=== PATIENT | female | born 1935 | race Hispanic/Latino ===

== ENCOUNTER 2018-04-19 11:45 | Observation (INO) | payer OTHER ==
[~2018-04-19] VITALS: Ht 154.9 cm; Wt 88.0 kg
[~2018-04-19 11:45] MED LIST: LISINOPRIL; METFORMIN; ONDANSETRON IV; PEPCID IV; TYLENOL500 MG PO; Z.0.LISINOPRIL10 MG PO; Z.0.TRAZODONE HCL100 PO; Z.0.TRAZODONE HCL50; Z.2.METFORMIN HCL500 PO
--- OUTSIDE RECORDS SUMMARY | 2018-04-19 11:49 | XMS REPORT | Clinical Summary ---
Author Author [facility] Organization [facility] Address Unknown Phone Unavailable Care Team Providers Care Relay Engineer Name Role Phone Asked, Pcp PCP Unavailable Allergies Active Allergy Reactions Severity Noted Date Comments Codeine GI Intolerance 12/29/2017 vomiting Current Medications Prescription Sig. Disp. Refills Start End Date Status Date lovastatin (MEVACOR) 20 Take 20 mg by mouth Active MG tablet nightly. metFORMIN (GLUCOPHAGE) Take 500 mg by mouth Active 500 mg tablet daily with breakfast. acetaminophen (TYLENOL) Take 500 mg by mouth Active 500 MG tablet every 6 (six) hours. lisinopril Take 1 tablet (20 mg 30 tablet 0 01/01/20 Active (PRINIVIL,ZESTRIL) 20 mg total) by mouth daily for 18 tablet 30 days. lisinopril Take 10 mg by mouth 12/31/19 Discontin (PRINIVIL,ZESTRIL) 10 mg daily. 18 ued tablet amLODIPine (NORVASC) 5 mg Take 1 tablet (5 mg 30 tablet 0 01/01/20 02/01/20 tablet total) by mouth daily for 18 18 30 days. Active Problems Problem Noted Date Essential hypertension 12/31/2017 General weakness 12/29/2017 Lower GI bleed 12/29/2017 Overview: Added automatically from request for surgery [id number] Encounters Date Type Specialty Care Team Description 12/31/2017 Patient Quality Mitzy Salmeron RN Outreach 12/30/2017 Anesthesia Gastroenterology Jv Graham MD 12/30/2017 Procedure Pass Gastroenterology 12/30/2017 Surgery Gastroenterology Arias Rodriguez MD COLONOSCOPY 12/29/2017 [facility] General Internal Medicine Charlee Frye MD General weakness (Primary - Encounter Lynda Rao, Jose C); 12/31/2017 Severe anemia; Lower GI bleed; Dehydration; Essential hypertension; Metabolic acidosis; Hypoalbuminemia after 04/18/2017 Family History Medical History Relation Name Comments Diabetes Father Diabetes Mother Relation Name Status Comments Father Mother Social History Tobacco Use Types Packs/Day Years Used Date Never Smoker Smokeless Tobacco: Never Used Alcohol Use Drinks/Week oz/Week Comments No Sex Assigned at Date Recorded Not on file Last Filed Vital Signs Vital Sign Reading Time Taken Blood Pressure 154/67 12/31/2017 11:41 AM [facility] Pulse 80 12/31/2017 11:41 AM [employer] CLE[employer]ER Temperature 36.3 C (97.3 F) 12/31/2017 11:41 AM TOP CLE[employer]ER Respiratory Rate 18 12/31/2017 11:41 AM TOP CLE[employer]ER Oxygen Saturation 98% 12/31/2017 11:41 AM [employer] CLE[employer]ER Inhaled Oxygen - - Concentration Weight - - Height 154.9 cm (5' 1") 12/29/2017 10:01 AM [employer] CLE[employer]ER Body Mass Index - - Plan of Treatment Health Maintenance Due Date Last Done Comments SHINGRIX VACCINE (#1) 1985 ZOSTER VACCINE 1995 PNEUMOCOCCAL 02/04/2000 POLYSACCHARIDE VACCINE AGE 65 AND OVER PNEUMOCOCCAL-13 02/04/2000 INFLUENZA VACCINE 06/22/2018 Procedures Procedure Name Priority Date/Time Associated Diagnosis Comments COLONOSCOPY 12/30/2017 Lower GI bleed 7:00 AM TOP CLEANER after 04/18/2017 Results * POC glucose (12/31/2017 11:42 AM) Only the most recent of 13 results within the time period is included. Component Value Ref Range POC glucose 116 (H) 65 - 99 mg/dL Comment: [facility] Notified RN Meter ID: [id number] Tele Rn: Sang Bray Specimen Performing Laboratory [facility] DEPARTMENT OF PATHOLOGY AND GENOMIC MEDICINE [address] [place] [id number] * CBC with platelet and differential (12/31/2017 5:50 AM) Only the most recent of 5 results within the time period is included. Component Value Ref Range WBC 10.26 4.50 - 11.00 k/uL RBC 3.96 (L) 4.20 - 5.50 m/uL HGB 11.5 (L) 12.0 - 16.0 g/dL HCT 35.6 (L) 37.0 - 47.0 % MCV 89.9 82.0 - 100.0 fL MCH 29.0 27.0 - 34.0 pg MCHC 32.3 31.0 - 37.0 g/dL RDW - SD 47.3 37.0 - 55.0 fL MPV 9.6 8.8 - 13.2 fL Platelet count 347 150 - 400 k/uL Nucleated RBC 0.00 /100 WBC Neutrophils 69.0 39.0 - 69.0 % Lymphocytes 18.4 (L) 25.0 - 45.0 % Monocytes 7.6 0.0 - 10.0 % Eosinophils 3.8 0.0 - 5.0 % Basophils 0.4 0.0 - 1.0 % Immature granulocytes 0.8Comment: "Immature granulocytes" 0.0 - 1.0 % (promyelocytes, myelocytes, metamyelocytes) Specimen Performing Laboratory Blood [facility] DEPARTMENT OF PATHOLOGY AND GENOMIC MEDICINE [address] [place] [id number] * Estimated GFR (12/30/2017 5:00 AM) Only the most recent of 2 results within the time period is included. Component Value Ref Range GFR Non Af Amer 80 mL/min/1.73 m2 GFR Af Amer >90 mL/min/1.73 m2 Comment: Chronic kidney disease: <60 mL/min/1.73m2 Kidney failure: <15 mL/min/1.73m2 The estimated GFR is calculated from the IDMS-traceable Modification of Diet in Renal Disease Equation. The accuracy of the calculation is poor when the creatinine is normal. Calculated values >90 mL/min/1.73m2 are not reported. This equation has not been validated in children (<18 years), women, the elderly (>70 years), or ethnic groups other than Caucasians and Americans. Specimen Performing Laboratory Plasma specimen [facility] DEPARTMENT OF PATHOLOGY AND GENOMIC MEDICINE [address] [place] [id number] * Troponin (12/30/2017 5:00 AM) Only the most recent of 3 results within the time period is included. Component Value Ref Range Troponin <0.30 0.00 - 0.30 ng/mL Comment: 0.30 - 1.49 ng/ml May indicate increased risk of acute coronary syndrome. >=1.5 ng/ml Consistent with acute myocardial infarction. The diagnostic value of a single normal or non-diagnostic result is questionable. Serial samples at 2-6 hour intervals are required to rule out acute myocardial injury. Specimen Performing Laboratory Plasma specimen [facility] DEPARTMENT OF PATHOLOGY AND GENOMIC MEDICINE [address] [place] [id number] * Prothrombin time with INR (12/30/2017 5:00 AM) Only the most recent of 2 results within the time period is included. Component Value Ref Range Prothrombin time 13.7 12.0 - 15.0 sec INR 1.0 Comment: The International Normalized Ratio (INR) is a therapeutic monitoring tool for patients who are stable on oral anticoagulant therapy. An INR of 2.0-3.0 is suggested for deep vein thrombosis/pulmonary embolism. Specimen Performing Laboratory Blood [facility] DEPARTMENT OF PATHOLOGY AND [facility] MEDICINE [address] [place] [id number] * Comprehensive metabolic panel (12/30/2017 5:00 AM) Only the most recent of 2 results within the time period is included. Component Value Ref Range Sodium 138 135 - 148 mEq/L Potassium 3.9 3.5 - 5.0 mEq/L Chloride 105 98 - 112 mEq/L CO2 17 (L) 24 - 31 mEq/L Anion gap 16 (H) 7 - 15 mEq/L Comment: Starting from February , anion gap calculation no longer incorporates potassium. Please note the change. BUN 17 8 - 23 mg/dL Creatinine 0.7 0.5 - 0.9 mg/dL Glucose 98 65 - 99 mg/dL Calcium 9.1 8.8 - 10.2 mg/dL Protein 7.0 6.3 - 8.3 g/dL Comment: [place] 4.6-7.0 g/dL 1 week 4.4-7.6 g/dL 7 months-1year 5.1-7.3 g/dL 1-2 years 5.6-7.5 g/dL >3 years 6.0-8.0 g/dL 18-150 6.3-8.3 g/dL Albumin 3.3 (L) 3.5 - 5.0 g/dL A/G ratio 0.9 0.7 - 3.8 Alkaline phosphatase 56 35 - 104 U/L AST 21 10 - 35 U/L ALT <5 (A) 5 - 50 U/L Total bilirubin 0.6 0.0 - 1.2 mg/dL Specimen Performing Laboratory Plasma specimen [facility] DEPARTMENT OF PATHOLOGY AND [facility] MEDICINE [address] [place] [id number] * Transfuse RBC (12/29/2017 5:31 PM) * ECG 12 lead (12/29/2017 5:26 PM) Component Value Ref Range Ventricular rate 69 Atrial rate 69 NC interval 148 QRSD interval 142 QT interval 482 QTC interval 516 P axis 1 53 QRS axis 1 34 T wave axis -8 EKG impression Normal sinus rhythm-Right bundle branch block-Minimal voltage criteria for LVH, may be normal variant-T wave abnormality, consider inferior ischemia-Abnormal ECG-No previous ECGs available- Specimen Performing Laboratory [facility] MUSE [address] [place] [address] * Urine culture (12/29/2017 1:55 PM) Component Value Ref Range Urine culture SEE COMMENTComment: Bacteriuria screen negative. Specimen Performing Laboratory [facility] DEPARTMENT OF PATHOLOGY AND GENOMIC MEDICINE [address] [place] [address] * Smear review (12/29/2017 1:06 PM) Only the most recent of 2 results within the time period is included. Component Value Ref Range Platelet slide review Monica adequate Anisocytosis Moderate Ovalocytes Moderate Enlarged platelets Moderate (A) Specimen Performing Laboratory [facility] DEPARTMENT OF PATHOLOGY AND GENOMIC MEDICINE [address] [place] [address] * Prepare RBC, 3 Units (12/29/2017 1:06 PM) Component Value Ref Range Product name Red Blood Cells -1, Leukored Unit number [id number] Product code [id number] Dispense status Transfused Blood expiration date 20180203 Blood type code 5100 Blood type O POSITIVE Product name Red Blood Cells -1, Leukored Unit number [id number] Product code [id number] Dispense status Transfused Blood expiration date 20180106 Blood type code 5100 Blood type O POSITIVE Product name Red Blood Cells -1, Leukored Unit number [id number] Product code [id number] Dispense status Transfused Blood expiration date 20180127 Blood type code 5100 Blood type O POSITIVE Specimen Performing Laboratory [facility] DEPARTMENT OF PATHOLOGY AND GENOMIC MEDICINE [address] [place] [address] * Type and screen (12/29/2017 1:06 PM) Component Value Ref Range ABO grouping O Rh type POS Antibody screen (gel) NEG Specimen Performing Laboratory Blood [facility] DEPARTMENT OF PATHOLOGY AND GENOMIC MEDICINE [address] [place] [address] * Urinalysis screen and microscopy, with reflex to culture (12/29/2017 12:38 PM) Component Value Ref Range Specimen site Clean catch Color, UA Straw Appearance, UA Clear Specific gravity, UA 1.018 1.001 - 1.035 pH, UA 5.0 5.0 - 8.5 Protein, UA 1+ (A) Negative Glucose, UA Negative Negative Ketones, UA Negative Negative Bilirubin, UA Negative Negative Blood, UA Small (A) Negative Nitrite, UA Negative Negative Urobilinogen, UA <2.0 <2.0 Leukocyte esterase, UA Negative Negative Epithelial cells, UA 1 /HPF WBC, UA 1 0 - 4 /HPF RBC, UA <1 0 - 2 /HPF Bacteria, UA Few None seen Yeast, UA None seen Yeast with pseudohyphae, None seen UA Hyaline casts, UA 1 /LPF Specimen Performing Laboratory Urine [facility] DEPARTMENT OF PATHOLOGY AND GENOMIC MEDICINE [address] [place] [address] * XR Chest 1 Vw Portable (12/29/2017 12:26 PM) Specimen Performing Laboratory [facility] [address] [place] [address] Narrative EXAMINATION:XR CHEST 1 VW PORTABLE CLINICAL HISTORY:gen weakness COMPARISON:None. IMPRESSION: 1.The heart size is slightly enlarged.The aorta is atherosclerotic. 2.There is no evidence pulmonary edema. Minimal patchy volume loss is present the left lung base. There are no pleural effusions. 3.Regional skeletal structures are within normal limits. [facility]-[id number] Procedure Note Interface, Radiology Results Incoming - 12/29/2017 12:30 PM TOP CLEANER EXAMINATION: XR CHEST 1 VW PORTABLE CLINICAL HISTORY: gen weakness COMPARISON: None. IMPRESSION: 1. The heart size is slightly enlarged. The aorta is atherosclerotic. 2. There is no evidence pulmonary edema. Minimal patchy volume loss is present the left lung base. There are no pleural effusions. 3. Regional skeletal structures are within normal limits. [facility]-[id number] * B natriuretic peptide (12/29/2017 12:15 PM) Component Value Ref Range BNP 30 0 - 100 pg/mL Specimen Performing Laboratory Blood [facility] DEPARTMENT OF PATHOLOGY AND GENOMIC MEDICINE [address] [place] [address] * Lactic acid level (12/29/2017 12:15 PM) Component Value Ref Range Lactic acid 1.6 0.5 - 2.2 mmol/L Specimen Performing Laboratory Plasma specimen [facility] DEPARTMENT OF PATHOLOGY AND GENOMIC MEDICINE [address] [place] [address] Narrative PER NURSE Shaw NOLASCO ADD ON12/29/201713:34 * CT Head Wo Contrast (12/29/2017 12:10 PM) Specimen Performing Laboratory [facility] [address] [place] [address] Narrative EXAMINATION:CT HEAD WO CONTRAST CLINICAL HISTORY:gen weakness COMPARISON:None. TECHNIQUE: Noncontrast head CT performed using radiation dose reduction techniques.Technical factors are evaluated and adjusted to ensure appropriate moderation of exposure.Automated dose management technology is applied to adjust radiation exposure while achieving a diagnostic quality image. FINDINGS: No evidence of acute intracranial hemorrhage, mass, mass effect, midline shift, or acute infarct. Few areas of subcortical and periventricular white matter hypoattenuation likely reflecting mild chronic microvascular ischemic changes. Ventricles and sulci are normal in appearance for patient's age.Arteriosclerosis of the cavernous and paraclinoid internal carotid arteries. Basal cisterns are clear. Calvarium is intact. 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 Status post bilateral lens extractions. Mild sinus inflammatory changes with small frothy secretions in the right sphenoid sinus. Mastoid air cells appear clear. IMPRESSION: 1. No CT evidence of acute intracranial abnormality. 2. Age-related involutional changes. [id number] Procedure Note Interface, Radiology Results Incoming - 12/29/2017 12:15 PM TOP CLEANER EXAMINATION: CT HEAD WO CONTRAST CLINICAL HISTORY: gen weakness COMPARISON: None. TECHNIQUE: Noncontrast head CT performed using radiation dose reduction techniques. Technical factors are evaluated and adjusted to ensure appropriate moderation of exposure. Automated dose management technology is applied to adjust radiation exposure while achieving a diagnostic quality image. FINDINGS: No evidence of acute intracranial hemorrhage, mass, mass effect, midline shift, or acute infarct. Few areas of subcortical and periventricular white matter hypoattenuation likely reflecting mild chronic microvascular ischemic changes. Ventricles and sulci are normal in appearance for patient's age. Arteriosclerosis of the cavernous and paraclinoid internal carotid arteries. Basal cisterns are clear. Calvarium is intact. 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 Status post bilateral lens extractions. Mild sinus inflammatory changes with small frothy secretions in the right sphenoid sinus. Mastoid air cells appear clear. IMPRESSION: 1. No CT evidence of acute intracranial abnormality. 2. Age-related involutional changes. [id number] * ECG ED Preliminary Interpretation - NOT AN ORDER (12/29/2017 11:02 AM) Narrative Charlee Frye MD 01/23/20182:03 PM ECG ED Preliminary Interpretation - Not an Order Performed by: CHARLEE FRYE Authorized by: CHARLEE FRYE ECG reviewed by ED Physician in the absence of a dial painter: yes Interpretation: Interpretation: abnormal Rate: ECG rate:69 ECG rate assessment: normal Rhythm: Rhythm: sinus rhythm QRS: QRS axis:Normal QRS intervals:Normal ST segments: ST segments:Normal Comments: Long qt after 04/18/2017 Insurance Payer Benefit Subscriber ID Type Phone Address Plan / Group [employer] xxxxxxxxx [facility]
[2018-04-19] MEDS ORDERED: CLONIDINE HCL 0.1 MG TAB PO ONE (12:15)
[2018-04-19] MEDS ORDERED: ASPIRIN 81 MG CHEW TAB PO ONE (12:15)
[2018-04-19 12:27] LABS: BASOPHILS % 0.5 % (0.0-1.0); EOSINOPHILS # (AUTO) 0.3 (0.0-0.4); EOSINOPHILS % 3.8 % (0.0-6.0); HEMOGLOBIN 11.5 g/dL (12.0-16.0); LYMPHOCYTES # (AUTO) 1.9 (1.0-3.2); LYMPHOCYTES % 26.3 % (18.0-39.1); MEAN CORPUSCULAR HEMOGLOBIN 29.5 pg (28-32); MEAN CORPUSCULAR HGB CONC 32.9 g/dL (31-35); MEAN CORPUSCULAR VOLUME 89.7 fL (81-99); MONOCYTES # (AUTO) 0.6 (0.2-0.8); NEUTROPHILS # (AUTO) 4.5 (2.1-6.9); NEUTROPHILS % 61.3 % (38.7-80.0); PLATELET COUNT 320 x10e3/uL (140-360); RED CELL DISTRIBUTION WIDTH 15.7 % (11.7-14.4)
[2018-04-19 12:28] LABS: INR 1.01; PROTHROMBIN TIME 12.5 seconds (11.9-14.5)
[2018-04-19 12:29] LABS: PARTIAL THROMBOPLASTIN TIME 32.4 seconds (23.8-35.5)
[2018-04-19 12:37] LABS: ALANINE AMINOTRANSFERASE 62 IU/L (0-55); ALBUMIN 4.5 g/dL (3.5-5.0); ALBUMIN/GLOBULIN RATIO 1.1 (0.8-2.0); ALKALINE PHOSPHATASE 107 IU/L (40-150); ANION GAP 14.1 mmol/L (8-16); BLOOD UREA NITROGEN 25 mg/dL (7-26); BUN/CREATININE RATIO 29 (6-25); CALCIUM 10.4 mg/dL (8.4-10.2); CARBON DIOXIDE 24 mmol/L (22-29); CHLORIDE 106 mmol/L (98-107); CREATINE KINASE 109 IU/L (29-168); CREATININE, SERUM 0.86 mg/dL (0.57-1.11); EST GLOMERULAR FILTRATION RATE > 60 ML/MIN (60-); GLUCOSE 96 mg/dL (74-118); POTASSIUM 4.1 mmol/L (3.5-5.1); SODIUM 140 mmol/L (136-145)
--- NOTE | 2018-04-19 12:46 | Diagnostic Imaging Report ---
PROCEDURE:CHEST SINGLE (PORTABLE) TECHNIQUE:Portable AP chest INDICATION:High blood pressure COMPARISON:Patients [facility], DX, CHEST SINGLE (PORTABLE), 06/21/2012, 14:40. FINDINGS: The lungs are clear and symmetrically inflated. No pleural effusions. Mild cardiomegaly with normal central vasculature. Mild aortic arch calcification. Intact skeleton. Study limited by underpenetration secondary to portable technique and body habitus. CONCLUSION: Mild cardiomegaly without acute abnormality. Dictated by: Osman Almonte M.D. on 04/19/2018 at 12:49 Electronically approved by: Osman Almonte M.D. on 04/19/2018 at 12:49
--- OUTSIDE RECORDS SUMMARY | 2018-04-19 15:23 | XMS REPORT ---
[facility] Address Unknown Phone Unavailable Care Team Providers Care Casino Floorperson Name Role Phone CELESTINO WRIGHT Unavailable Unavailable Problems This patient has no known problems. Allergies, Adverse Reactions, Alerts This patient has no known allergies or adverse reactions. Medications This patient has no known medications. Results Test Description Test Time Test Comments Text Results Atomic Results Result Comments CHEST SINGLE (PORTABLE) [place] [address] Patient Name: CLEMENTINA GALLOWAY MR #: [id number] : 1935 Age/Sex: 83/F Req #: [id number] Adm Physician: Ordered by: MCKAYLA BUSH PAYMENT COLLECTOR Report #: [id number] Location: ER Room/Bed: Procedure: [id number] DX/CHEST SINGLE (PORTABLE) Exam Date: 04/19/18 Exam Time: 1210 REPORT STATUS: Signed PROCEDURE: CHEST SINGLE (PORTABLE) TECHNIQUE: Portable AP chest INDICATION: High blood pressure COMPARISON: [facility], DX, CHEST SINGLE ( PORTABLE), 06/21/2012, 14:40. FINDINGS: The lungs are clear and symmetrically inflated. No pleural effusions. Mild cardiomegaly with normal central vasculature. Mild aortic arch calcification. Intact skeleton. Study limited by underpenetration secondary to portable technique and body habitus. CONCLUSION: Mild cardiomegaly without acute abnormality. Dictated by: Edie Almonte M.D. on 04/19/2018 at 12:49 Electronically approved by: Edie Almonte M.D. on 04/19/2018 at 12: 49 Dictated By: EDIE ALMONTE MD 1249 Transcribed By: HAYLIE on 04/19/18 1249 COPY TO: MCKAYLA BUSH NP
--- OUTSIDE RECORDS SUMMARY | 2018-04-19 15:23 | XMS REPORT | Clinical Summary ---
Author Author [facility] [employer] Address Unknown Phone Unavailable Care Team Providers Care Licensed Nuclear Control Room Operator Name Role Phone Asked, Pcp PCP Unavailable [...] Overview: Added automatically from request for surgery [id number] Encounters Date Type Specialty Care Team Description 12/31/2017 Patient Quality Mitzy Salmeron RN Outreach 12/30/2017 Anesthesia Gastroenterology Jv Graham MD 12/30/2017 Procedure Pass Gastroenterology 12/30/2017 Surgery Gastroenterology Arias Rodriguez MD COLONOSCOPY 12/29/2017 [facility] General Internal Medicine Charlee Frye MD General [...] Taken Blood Pressure 154/67 12/31/2017 11:41 AM BULK FILLER Pulse 80 12/31/2017 11:41 AM BULK FILLER Temperature 36.3 C (97.3 F) 12/31/2017 11:41 AM BULK FILLER Respiratory Rate 18 12/31/2017 11:41 AM BULK FILLER Oxygen Saturation 98% 12/31/2017 11:41 AM BULK FILLER Inhaled Oxygen - - Concentration Weight - - Height 154.9 cm (5' 1") 12/29/2017 10:01 AM BULK FILLER Body Mass Index - - Plan of Treatment Health Maintenance Due Date Last Done Comments SHINGRIX VACCINE (#1) 1985 ZOSTER VACCINE 1995 PNEUMOCOCCAL 02/04/2000 POLYSACCHARIDE VACCINE AGE 65 AND OVER PNEUMOCOCCAL-13 02/04/2000 INFLUENZA VACCINE 06/22/2018 Procedures Procedure Name Priority Date/Time Associated Diagnosis Comments COLONOSCOPY 12/30/2017 Lower GI bleed 7:00 AM BULK FILLER after 04/18/2017 Results * POC glucose (12/31/2017 11:42 AM) Only the most recent of 13 results within the time period is included. Component Value Ref Range POC glucose 116 (H) 65 - 99 mg/dL Comment: [facility] Notified RN Meter ID: [id number] Gunstock Repairer: Sang Bray Specimen Performing Laboratory [facility] DEPARTMENT OF PATHOLOGY AND GENOMIC MEDICINE [address] [place] [id number] * CBC with platelet and differential (12/31/2017 [...] (promyelocytes, myelocytes, metamyelocytes) Specimen Performing Laboratory Blood [facility] DEPARTMENT OF PATHOLOGY AND GENOMIC MEDICINE [address] [place] [phone] * Estimated GFR (12/30/2017 5:00 AM) Only [...] and Americans. Specimen Performing Laboratory Plasma specimen [facility] DEPARTMENT OF PATHOLOGY AND GENOMIC MEDICINE [address] [place] [address] 11279 * Troponin (12/30/2017 5:00 AM) Only the [...] myocardial injury. Specimen Performing Laboratory Plasma specimen [facility] DEPARTMENT OF PATHOLOGY AND GENOMIC MEDICINE [address] [place] [id number] * Prothrombin time with INR (12/30/2017 5:00 [...] vein thrombosis/pulmonary embolism. Specimen Performing Laboratory Blood [facility] DEPARTMENT OF PATHOLOGY AND [facility] [address] [place] [phone] * Comprehensive metabolic panel (12/30/2017 5:00 AM) [...] Protein 7.0 6.3 - 8.3 g/dL Comment: [place] 4.6-7.0 g/dL 1 week 4.4-7.6 g/dL 7 [...] 1.2 mg/dL Specimen Performing Laboratory Plasma specimen [facility] DEPARTMENT OF PATHOLOGY AND [facility] [address] [place] [address] * Transfuse RBC (12/29/2017 5:31 PM) * ECG 12 lead (12/29/2017 5:26 PM) Component Value Ref Range Ventricular rate 69 Atrial rate 69 SC interval 148 QRSD interval 142 QT interval 482 QTC interval 516 P axis 1 53 QRS axis 1 34 T wave axis -8 EKG impression Normal sinus rhythm-Right bundle branch block-Minimal voltage criteria for LVH, may be normal variant-T wave abnormality, consider inferior ischemia-Abnormal ECG-No previous ECGs available- Specimen Performing Laboratory [facility] [address] [address] [place] [address] * Urine culture (12/29/2017 1:55 PM) Component Value Ref Range Urine culture SEE COMMENTComment: Bacteriuria screen negative. Specimen Performing Laboratory [facility] DEPARTMENT OF PATHOLOGY AND GENOMIC MEDICINE [address] [place] [address] * Smear review (12/29/2017 1:06 PM) Only the most recent of 2 results within the time period is included. Component Value Ref Range Platelet slide review Monica adequate Anisocytosis Moderate Ovalocytes Moderate Enlarged platelets Moderate (A) Specimen Performing Laboratory [facility] DEPARTMENT OF PATHOLOGY AND GENOMIC MEDICINE [address] [place] [address] * Prepare RBC, 3 Units (12/29/2017 1:06 PM) Component Value Ref Range Product name Red Blood Cells -1, Leukored Unit number [id number] Product code [id number] Dispense status Transfused Blood expiration date 20180203 Blood type code 5100 Blood type O POSITIVE Product name Red Blood Cells -1, Leukored Unit number [id number] Product code [id number] Dispense status Transfused Blood expiration date 20180106 Blood type code 5100 Blood type O POSITIVE Product name Red Blood Cells -1, Leukored Unit number [id number] Product code [id number] Dispense status Transfused Blood expiration date 20180127 Blood type code 5100 Blood type O POSITIVE Specimen Performing Laboratory [facility] DEPARTMENT OF PATHOLOGY AND GENOMIC MEDICINE [address] [place] [address] * Type and screen (12/29/2017 1:06 PM) Component Value Ref Range ABO grouping O Rh type POS Antibody screen (gel) NEG Specimen Performing Laboratory Blood [facility] DEPARTMENT OF PATHOLOGY AND GENOMIC MEDICINE [address] [place] [address] * Urinalysis screen and microscopy, with reflex [...] UA 1 /LPF Specimen Performing Laboratory Urine [facility] DEPARTMENT OF PATHOLOGY AND GENOMIC MEDICINE [address] [place] [phone] * XR Chest 1 Vw Portable (12/29/2017 12:26 PM) Specimen Performing Laboratory [facility] [address] [place] [address] Narrative EXAMINATION:XR CHEST 1 VW PORTABLE CLINICAL HISTORY:gen weakness COMPARISON:None. IMPRESSION: 1.The heart size is slightly enlarged.The aorta is atherosclerotic. 2.There is no evidence pulmonary edema. Minimal patchy volume loss is present the left lung base. There are no pleural effusions. 3.Regional skeletal structures are within normal limits. [facility]-[id number] Procedure Note Interface, Radiology Results Incoming - 12/29/2017 12:30 PM BULK FILLER EXAMINATION: XR CHEST 1 VW PORTABLE CLINICAL HISTORY: gen weakness COMPARISON: None. IMPRESSION: 1. The heart size is slightly enlarged. The aorta is atherosclerotic. 2. There is no evidence pulmonary edema. Minimal patchy volume loss is present the left lung base. There are no pleural effusions. 3. Regional skeletal structures are within normal limits. [facility]-[id number] * B natriuretic peptide (12/29/2017 12:15 PM) Component Value Ref Range BNP 30 0 - 100 pg/mL Specimen Performing Laboratory Blood [facility] DEPARTMENT OF PATHOLOGY AND GENOMIC MEDICINE [address] [place] [phone] * Lactic acid level (12/29/2017 12:15 PM) Component Value Ref Range Lactic acid 1.6 0.5 - 2.2 mmol/L Specimen Performing Laboratory Plasma specimen [facility] DEPARTMENT OF PATHOLOGY AND GENOMIC MEDICINE [address] [place] [address]783 Narrative PER NURSE Shaw NOLASCO ADD ON12/29/201713:34 * CT Head Wo Contrast (12/29/2017 12:10 PM) Specimen Performing Laboratory [facility] [address] [place] [address] Narrative EXAMINATION:CT HEAD WO CONTRAST CLINICAL HISTORY:gen [...] acute intracranial abnormality. 2. Age-related involutional changes. [id number] Procedure Note Interface, Radiology Results Incoming - 12/29/2017 12:15 PM BULK FILLER EXAMINATION: CT HEAD WO CONTRAST CLINICAL HISTORY: [...] acute intracranial abnormality. 2. Age-related involutional changes. [id number] * ECG ED Preliminary Interpretation - NOT AN ORDER (12/29/2017 11:02 AM) Narrative Charlee Frye MD 01/23/20182:03 PM ECG ED Preliminary Interpretation - Not an Order Performed by: CHARLEE FRYE Authorized by: CHARLEE FRYE ECG reviewed by ED Physician in the absence of a synthetic filament spinner: yes Interpretation: Interpretation: abnormal Rate: ECG rate:69 ECG rate assessment: normal Rhythm: Rhythm: sinus rhythm QRS: QRS axis:Normal QRS intervals:Normal ST segments: ST segments:Normal Comments: Long qt after 04/18/2017 Insurance Payer Benefit Subscriber ID Type Phone Address Plan / Group [employer] xxxxxxxxx [facility]
--- NOTE | 2018-04-19 15:49 | Diagnostic Imaging Report ---
Exam: Head CT without contrast History: Dizziness, hypertension Comparison studies: None Technique: Axial images were obtained from the skull base to the vertex. Coronal and sagittal images reconstructed from the axial data. Intravenous contrast: None Findings: Scalp: No abnormalities. Bones: No fractures, blastic or lytic lesions. Brain sulci: Mildly prominent but age appropriate. Ventricles: Normal in size and configuration. No hydrocephalus. Extra-axial spaces: No masses, no fluid collection. Parenchyma: No abnormal densities. No mass, acute hemorrhage or acute or chronic cortical vascular insults. Sellar/suprasellar region: No abnormalities. Craniocervical junction: Patent foramen magnum. No Chiari one malformation. Incidental findings: Atherosclerotic calcifications in the carotid siphons. Nonspecific inflammatory mucosal thickening in the left sphenoid sinus. Bilateral intraocular lens replacements related to previous cataract surgery. IMPRESSION: No acute intracranial abnormalities. Signed by: Dr. Ketan Porter M.D. on 04/19/2018 3:45 PM
[2018-04-19 17:56] VITALS: BP 161/71
[2018-04-19] MEDS ORDERED: LOSARTAN POTAS100 MG PO (18:08)
[2018-04-19] MEDS ORDERED: HYDROCHLOROTHIA25 MG PO (18:08)
[2018-04-19 18:09] VITALS: BP 161/71
[2018-04-19] MEDS ORDERED: ATORVASTATIN CA20 MG PO (18:09)
[2018-04-19] MEDS ORDERED: IRON PO (18:09)
[2018-04-19] MEDS ORDERED: LISINOPRIL10 MG PO (18:09)
[2018-04-19] MEDS ORDERED: VITAMIN D5000 UNIT PO (18:09)
[2018-04-19] MEDS ORDERED: TRAZODONE HCL50 MG PO (18:09)
[2018-04-19] MEDS ORDERED: ULTRAM50 MG PO (18:09)
[2018-04-19] MEDS ORDERED: MELATONIN3 MG PO (18:18)
[2018-04-19] MEDS ORDERED: ACETAMINOPHEN325 M1 PO (19:40)
[2018-04-19 20:00] VITALS: BP 171/77
[2018-04-19] MEDS ORDERED: TRAMADOL HCL 50 MG TAB PO PRN (20:30)
[2018-04-19] MEDS ORDERED: NON-FORMULARY MEDICATION (Cholecalciferol (Vitamin D3) (Vitamin D) 50,000 UNITS) PO SCH (20:30)
[2018-04-19] MEDS ORDERED: MELATONIN 3 MG TAB PO PRN (20:30)
[2018-04-19] MEDS: ACETAMINOPHEN 325 MG TAB PO PRN (20:52)
[2018-04-19] MEDS: NIFEDIPINE CR 30 MG TAB PO SCH (20:52)
[2018-04-19 20:55] LABS: CREATINE KINASE MB 1.5 ng/mL (0-5.0)
[2018-04-19] MEDS ORDERED: TRAZODONE HCL 50 MG TAB PO SCH (21:00)
[2018-04-19] MEDS ORDERED: ATORVASTATIN 20 MG TAB PO SCH (21:00)
[2018-04-19] MEDS ORDERED: MELATONIN 5 MG TABLET PO PRN (21:00)
[2018-04-19] MEDS ORDERED: ATORVASTATIN 40 MG TAB PO SCH (21:00)
[2018-04-20] VITALS: BP 158/60
[2018-04-20 04:00] VITALS: BP 160/80
[2018-04-20] MEDS: ACETAMINOPHEN 325 MG TAB PO PRN ×2 (06:12→12:00)
[2018-04-20 07:23] LABS: CREATINE KINASE 101 IU/L (29-168)
[2018-04-20 07:41] LABS: CHOL/HDL RATIO 2.6 (3.0-3.6)
[2018-04-20 07:50] VITALS: BP 153/63
[2018-04-20 08:00] VITALS: BP 153/63
[2018-04-20] MEDS: NIFEDIPINE CR 30 MG TAB PO SCH (08:00)
[2018-04-20] MEDS ORDERED: METFORMIN HCL 500 MG TAB PO SCH (08:00)
[2018-04-20] MEDS ORDERED: LISINOPRIL 10 MG TAB PO SCH (09:00)
[2018-04-20] MEDS ORDERED: LOSARTAN POTASSIUM 100 MG TAB PO SCH (09:00)
[2018-04-20] MEDS ORDERED: LISINOPRIL 20 MG TAB PO SCH (09:00)
[2018-04-20] MEDS ORDERED: ([Iron] 1 TAB) PO SCH (09:00)
[2018-04-20] MEDS ORDERED: HYDROCHLOROTHIAZIDE 25 MG TAB PO SCH (09:00)
--- NOTE | 2018-04-20 09:22 | History and Physical ---
OBSERVATION CHIEF COMPLAINT: Dizziness, shortness of breath and hypertensive urgency. HISTORY: Patient is a pleasant 83-year-old female recently received blood transfusion at [facility] secondary to diverticular bleed. The patient is stable. She saw her family physician and noted an elevated blood pressure. The patient is otherwise stable. Blood pressure is elevated, but overall she is stable. No chest pain or shortness of breath. PAST MEDICAL HISTORY: Hypertension, chronic anemia secondary to diverticulosis, diabetes, type 2, on metformin, dyslipidemia, osteoarthritis, obesity. PAST SURGICAL HISTORY: Lower back surgery, appendectomy, cholecystectomy, total hysterectomy, tonsillectomy, left hand surgery. SOCIAL HISTORY: Patient does not smoke or use alcohol. No regular drugs. ALLERGIES: CODEINE. HOME MEDICATIONS: Tylenol, Lipitor, hydrochlorothiazide, losartan, metformin, tramadol, trazodone, iron therapy, and melatonin. PHYSICAL EXAMINATION VITAL SIGNS: Temperature is 98, blood pressure 153/63, pulse rate 70, respirations 20. GENERAL: The patient is not in acute distress. HEENT: Normocephalic, atraumatic and anicteric. NECK: Supple grossly. PULMONARY: Clear. CARDIOVASCULAR: Regular rate and rhythm. ABDOMEN: Soft and unremarkable. EXTREMITIES: No cyanosis or edema. NEUROLOGIC: There is no focal deficit. LABORATORY: Otherwise unremarkable. Hemoglobin and hematocrit of 11.5 and 35. BUN and creatinine is around 25 and 0.8 respectively. IMPRESSION: Hypertensive urgency. Blood pressure was elevated in the emergency room, but that was prior to her home medication that was given. Blood pressure was 227/112. Current blood pressure is 153/63. PLAN: Nifedipine XL 30 mg currently. The patient may adjust her blood pressure medication from 60 mg to 90 mg if needed. Advised the patient to follow up with her family doctor within a week. Job#: [id number] AVINASH
--- NOTE | 2018-04-20 09:27 | Discharge Summary ---
Please review my history and physical. PCP: Dr. Paty Mckenna FINAL DIAGNOSIS: Hypertensive urgency, much improved now. PLAN 1. Nifedipine XL 30 mg daily. 2. Colace 100 mg b.i.d. Patient to follow up with her family doctor within a week. Patient is an 83-year-old female with hypertensive urgency. Patient doing much better now. No chest pain. No shortness of breath. No dizziness. She is ambulatory. She is eating appropriately. Patient is stable and discharged home. Resume home medications. She does have hydrochlorothiazide and losartan. Nifedipine XL 30 mg daily. Please review my plan. Job#: [id number] AVINASH
[2018-04-20] MEDS ORDERED: nifedipine xl PO (09:41)
[2018-04-20] MEDS ORDERED: COLACE100 MG PO (09:42)
[2018-04-20 13:23] VITALS: BP 160/77
[2018-04-22] MEDS ORDERED: ERGOCALCIFEROL 50,000 UNIT CAP PO SCH (09:00)
== END 2018-04-20 13:54 | disposition home or self-care (01) ==
LOC: ER 11:45 → INTOOBSV 15:21 → ERHOLD 15:21 → MED/SURG 16:56
PROVIDERS: ADMIT Internal Medicine; ATTEND Internal Medicine
DX: I16.0 Hypertensive urgency (principal); R42 Dizziness and giddiness; I10 Essential (primary) hypertension; D64.9 Anemia, unspecified; E11.9 Type 2 diabetes mellitus without complications; E78.5 Hyperlipidemia, unspecified
CPT/HCPCS: 36415 ×2; 70450; 71045; 80053; 80061; 82550 ×2; 82553 ×2; 82948 ×2; 83735; 83880; 84484 ×2; 85025; 85610; 85730; 93005; 99284; G0378 ×2